=== PATIENT | female | born 1940 | race Caucasian/White ===

== ENCOUNTER 2017-04-11 15:31 | Emergency (ER) | payer MEDICARE ==
[2017-04-11 15:57] VITALS: TEMP 98.7
--- NOTE | 2017-04-11 16:59 | ED ---
General Adult HPI - General Chief complaint: Upper Respiratory Infection Stated complaint: \ Time Seen by Provider: 04/11/17 16:41 Source: patient, RN notes reviewed Mode of arrival: ambulatory Limitations: no limitations - History of Present Illness Initial comments: 76 yo female presents to the ER with cc of concern that she is being poisoned by her furnace. She states every year she turns her.she does get throat pain she says congestion she starts to get a cough and states started doctor for this. Evaluated and nothing to his ALLERGIES. He states she does not make sure there is nothing more going on. She states she just feels ill she feels like she gets mild headaches associated with this. She denies any fever or chills. Patient denies any recent fever, chills, chest pain, back pain, abdominal pain, nausea vomiting, numbness or tingling, dysuria or hematuria, constipation or diarrhea, headaches or visual changes, or any other current symptoms. - Related Data Home Medications Medication Instructions Recorded Confirmed Levothyroxine Sodium [Synthroid] 88 mcg PO DAILY 04/11/17 04/11/17 Metoprolol Succinate [Toprol XL] 25 mg PO DAILY 04/11/17 04/11/17 Multivitamins, Thera [Multivitamin 1 tab PO DAILY 04/11/17 04/11/17 (formulary)] [place]-3 Fatty Acids/Fish Oil [Fish 1,000 mg PO DAILY 04/11/17 04/11/17 Oil 1,000 mg Softgel] Vitamin E 1,000 unit PO DAILY 04/11/17 04/11/17 Allergies Allergy/AdvReac Type Severity Reaction Status Date / Time Sulfa (Sulfonamide Allergy Rash/Hives Verified 04/11/17 16:59 Antibiotics) Review of Systems ROS Statement: Those systems with pertinent positive or pertinent negative responses have been documented in the HPI. ROS Other: All systems not noted in ROS Statement are negative. Past Medical History Past Medical History: Hypertension, Thyroid Disorder History of Any Multi-Drug Resistant Organisms: None Reported Past Surgical History: Cholecystectomy, Hysterectomy Additional Past Surgical History / Comment(s): bilateral cataract Past Psychological History: Anxiety Smoking Status: Never smoker Past Alcohol Use History: None Reported Past Drug Use History: None Reported General Exam - General Exam Comments Initial Comments: General: The patient is awake and alert, in no distress, and does not appear acutely ill. Eye: Pupils are equal, round and reactive to light, extra-ocular movements are intact; there is normal conjunctiva bilaterally. No signs of icterus. Ears, nose, mouth and throat: There are moist mucous membranes and no oral lesions. Neck: The neck is supple, there is no tenderness. Cardiovascular: There is a regular rate and rhythm. No murmur, rub or gallop is appreciated. Respiratory: Lungs are clear to auscultation, respirations are non-labored, breath sounds are equal. No wheezes, stridor, rales, or rhonchi. Gastrointestinal: Soft, non-distended, non-tender abdomen without masses or organomegaly noted. There is no rebound or guarding present. No CVA tenderness. Bowel sounds are unremarkable. Back: There is no tenderness to palpation in the midline. There is no obvious deformity. No rashes noted. Musculoskeletal: Normal ROM, no tenderness, There is no pedal edema. There is no calf tenderness or swelling. Sensation intact. Pulses equal bilaterally 2+. Neurological: CN II-XII intact, There are no obvious motor or sensory deficits. Coordination appears grossly intact. Speech is normal. Skin: Skin is warm and dry and no rashes or lesions are noted. Psychiatric: Cooperative, appropriate mood & affect, normal judgment. Limitations: no limitations Course Vital Signs 04/11/17 04/11/17 15:51 17:35 Temperature 98.7 F Pulse Rate 88 Respiratory 18 20 Rate Blood Pressure 218/93 O2 Sat by Pulse 99 Oximetry Medical Decision Making - Medical Decision Making 76-year-old female presents for cough with concern of furnace issue. At this time patient's lab work is been reviewed. She has a history of leukemia which is a sling elevated white blood cell count. This time we cannot find an acute cause for her symptoms. We discussed the could be ALLERGY related to the furnace discussed could be the weather. This and we discussed continued follow- up with her doctor we discussed return parameters all questions. Patient stated she understood and she is in. All questions have been answered. She will be discharged. - Lab Data Result diagrams: 04/11/17 17:28 04/11/17 17:28 Lab Results 04/11/17 04/11/17 04/11/17 Range/Units 17:28 17:28 17:28 WBC 23.3 H (3.8-10.6) k/uL RBC 5.02 (3.80-5.40) m/uL Hgb 14.2 (11.4-16.0) gm/dL Hct 44.3 (34.0-46.0) % MCV 88.3 (80.0-100.0) fL MCH 28.3 (25.0-35.0) pg MCHC 32.0 (31.0-37.0) g/dL RDW 14.8 (11.5-15.5) % Plt Count 251 (150-450) k/uL Neutrophils % (Manual) 22 % Lymphocytes % (Manual) 78 % Other Cells % % Neutrophils # (Manual) 5.13 (1.3-7.7) k/uL Lymphocytes # (Manual) 18.17 H (1.0-4.8) k/uL Nucleated RBCs 0 (0-0) /100 WBC Manual Slide Review Performed Carbon Monoxide, Quant 1.0 (<10.0) % Sodium 142 (137-145) mmol/L Potassium 4.5 (3.5-5.1) mmol/L Chloride 104 (98-107) mmol/L Carbon Dioxide 26 (22-30) mmol/L Anion Gap 12 mmol/L BUN 18 H (7-17) mg/dL Creatinine 0.84 (0.52-1.04) mg/dL Est GFR (MDRD) Af Amer >60 (>60 ml/min/1.73 sqM) Est GFR (MDRD) Non-Af >60 (>60 ml/min/1.73 sqM) Glucose 95 (74-99) mg/dL Calcium 10.4 H (8.4-10.2) mg/dL Total Bilirubin 0.5 (0.2-1.3) mg/dL AST 27 (14-36) U/L ALT 28 (9-52) U/L Alkaline Phosphatase 76 (38-126) U/L Total Protein 7.3 (6.3-8.2) g/dL Albumin 4.6 (3.5-5.0) g/dL - Radiology Data Radiology results: report reviewed, image reviewed Disposition Clinical Impression: Upper respiratory infection Disposition: HOME SELF-CARE Condition: Stable Instructions: Upper Respiratory Infection (ED) Additional Instructions: Please use medication as discussed. Please follow up with family doctor if symptoms have not improved over the next two days. Please return to the emergency room if your symptoms increase or worsen or for any other concerns. Referrals: Trinh Burk DO [Primary Care Provider] - 1-2 days Time of Disposition: 18:14
--- NOTE | 2017-04-11 17:39 | XR ---
EXAMINATION TYPE: XR chest 2V DATE OF EXAM: 04/11/2017 COMPARISON: NONE HISTORY: Headache TECHNIQUE: Frontal and lateral views of the chest are obtained. FINDINGS: Heart and mediastinum are normal. Lungs are clear. Costophrenic angles are clear. There ar e no hilar masses. Bony thorax is intact IMPRESSION: Normal chest
[2017-04-11 17:48] LABS: ALT 28 U/L (9-52); AST 27 U/L (14-36); Albumin 4.6 g/dL (3.5-5.0); Alkaline Phosphatase 76 U/L (38-126); Anion Gap 12 mmol/L; Blood Urea Nitrogen 18 mg/dL (7-17); Calcium 10.4 mg/dL (8.4-10.2); Carbon Dioxide 26 mmol/L (22-30); Chloride 104 mmol/L (98-107); Glucose 95 mg/dL (74-99); HCT 44.3 % (34.0-46.0); HGB 14.2 gm/dL (11.4-16.0); MCH 28.3 pg (25.0-35.0); MCV 88.3 fL (80.0-100.0); Mean Platelet Volume 7.9; Platelet Count 251 k/uL (150-450); Potassium 4.5 mmol/L (3.5-5.1); RBC 5.02 m/uL (3.80-5.40); RDW 14.8 % (11.5-15.5); Sodium 142 mmol/L (137-145); Total Bilirubin 0.5 mg/dL (0.2-1.3); Total Protein 7.3 g/dL (6.3-8.2); WBC 23.3 k/uL (3.8-10.6)
[2017-04-11 18:06] LABS: Lymphocytes # (M) 18.17 k/uL (1.0-4.8); Neutrophils # (M) 5.13 k/uL (1.3-7.7); Neutrophils % (M) 22 %; Nucleated Red Blood Cells 0 /100 WBC (0-0); Total Cells Counted 100
[2017-04-11 19:12] VITALS: BP 208/87; PULSE 74; RESP 16
== END 2017-04-11 19:12 | disposition home or self-care (01) ==
LOC: EC 15:31
DX: J06.9 Acute upper respiratory infection, unspecified (principal); I10 Essential (primary) hypertension; E07.9 Disorder of thyroid, unspecified; Z88.2 Allergy status to sulfonamides; Z79.899 Other long term (current) drug therapy
CPT/HCPCS: 36415; 71046; 80053; 82375; 85025; 99283

== ENCOUNTER 2022-12-03 09:12 | Emergency (ER) | payer MEDICARE ==
[2022-12-03 09:40] VITALS: RESP 18
[2022-12-03 10:11] LABS: ALT 19 U/L (4-34); AST 31 U/L (14-36); African American GFR (CKD) 74 (>60 ml/min/1.73 sqM); Albumin 4.3 g/dL (3.5-5.0); Alkaline Phosphatase 55 U/L (38-126); Anion Gap 12 mmol/L; Blood Urea Nitrogen 12 mg/dL (7-17); Calcium 8.9 mg/dL (8.4-10.2); Carbon Dioxide 21 mmol/L (22-30); Chloride 105 mmol/L (98-107); Glucose 130 mg/dL (74-99); Non-African American GFR(CKD) 64 (>60 ml/min/1.73 sqM); Potassium 4.4 mmol/L (3.5-5.1); Sodium 138 mmol/L (137-145); Total Bilirubin 0.5 mg/dL (0.2-1.3); Total Protein 6.6 g/dL (6.3-8.2)
[2022-12-03 10:19] LABS: Anisocytosis Slight; HCT 35.5 % (34.0-46.0); HGB 11.6 gm/dL (11.4-16.0); MCH 30.1 pg (25.0-35.0); MCHC 32.6 g/dL (31.0-37.0); Mean Platelet Volume 9.7; Platelet Count 100 k/uL (150-450); RBC 3.84 m/uL (3.80-5.40); RDW 16.2 % (11.5-15.5)
[2022-12-03 10:23] LABS: WBC 140.2 k/uL (3.8-10.6)
[2022-12-03 10:24] LABS: MCV 92.4 fL (80.0-100.0)
--- NOTE | 2022-12-03 11:14 | ED ---
General Adult HPI - General Chief complaint: Recheck/Abnormal Lab/Rx Stated complaint: DOC SENT/RECHECK VIT K Time Seen by Provider: 12/03/22 10:08 Source: patient, RN notes reviewed Mode of arrival: ambulatory Limitations: no limitations - History of Present Illness Initial comments: 82-year-old female presents to the emergency department for laboratory recheck. She states she had her labs drawn on 11/27/22 and had an elevated potassium. She was told by her primary care provider to have her labs redrawn. Overall she states that she is feeling well. Past medical history includes hypertension, leukemia. He follows with Dr. Moore for her leukemia. She denies any chest pain, palpitations, nausea, vomiting, weakness. - Related Data Home Medications Medication Instructions Recorded Confirmed Levothyroxine Sodium [Synthroid] 88 mcg PO DAILY 04/11/17 04/11/17 Metoprolol Succinate [Toprol XL] 25 mg PO DAILY 04/11/17 04/11/17 Multivitamins, Thera [Multivitamin 1 tab PO DAILY 04/11/17 04/11/17 (formulary)] [place]-3 Fatty Acids/Fish Oil [Fish 1,000 mg PO DAILY 04/11/17 04/11/17 Oil 1,000 mg Softgel] Vitamin E (Dl,Tocopheryl Acet) 1,000 unit PO DAILY 04/11/17 04/11/17 [Vitamin E] Allergies Allergy/AdvReac Type Severity Reaction Status Date / Time Sulfa (Sulfonamide Allergy Rash/Hives Verified 12/03/22 09:40 Antibiotics) Review of Systems ROS Statement: Those systems with pertinent positive or pertinent negative responses have been documented in the HPI. ROS Other: All systems not noted in ROS Statement are negative. Past Medical History Past Medical History: Hypertension, Thyroid Disorder History of Any Multi-Drug Resistant Organisms: None Reported Past Surgical History: Cholecystectomy, Hysterectomy Additional Past Surgical History / Comment(s): bilateral cataract Past Psychological History: Anxiety Smoking Status: Never smoker Past Alcohol Use History: None Reported Past Drug Use History: None Reported General Exam Limitations: no limitations General appearance: alert, in no apparent distress Head exam: Present: atraumatic, normocephalic, normal inspection Eye exam: Present: normal appearance, PERRL, EOMI. Absent: scleral icterus, conjunctival injection, periorbital swelling ENT exam: Present: normal exam, mucous membranes moist Neck exam: Present: normal inspection. Absent: tenderness, meningismus, lymphadenopathy Respiratory exam: Present: normal lung sounds bilaterally. Absent: respiratory distress, wheezes, rales, rhonchi, stridor Cardiovascular Exam: Present: regular rate, normal rhythm, normal heart sounds. Absent: systolic murmur, diastolic murmur, rubs, gallop, clicks GI/Abdominal exam: Present: soft, normal bowel sounds. Absent: distended, tenderness, guarding, rebound, rigid Extremities exam: Present: normal inspection, full ROM, normal capillary refill. Absent: tenderness, pedal edema, joint swelling, calf tenderness Back exam: Present: normal inspection Neurological exam: Present: alert, oriented X3 Psychiatric exam: Present: normal affect, normal mood Skin exam: Present: warm, dry, intact, normal color. Absent: rash Course Vital Signs 12/03/22 09:37 Temperature 98 F Pulse Rate 67 Respiratory 18 Rate Blood Pressure 95/56 O2 Sat by Pulse 100 Oximetry Medical Decision Making - Medical Decision Making Was pt. sent in by a medical professional or institution ([facility] Whelan, PIPED POCKET MACHINE OPERATOR, urgent care, hospital, or senior living...) When possible be specific @ -Sent by her primary care provider Did you speak to anyone other than the patient for history (EMS, parent, family, police, friend...)? What history was obtained from this source @ -No Did you review nursing and triage notes (agree or disagree)? Why? @ -I reviewed and agree with nursing and triage notes Were old charts reviewed (outside hosp., previous admission, EMS record, old EKG, old radiological studies, urgent care reports/EKG's, senior living records)? Report findings @ -No old charts were reviewed Differential Diagnosis (chest pain, altered mental status, abdominal pain women, abdominal pain men, vaginal bleeding, weakness, fever, dyspnea, syncope, headache, dizziness, GI bleed, back pain, seizure, CVA, palpatations, mental health, musculoskeletal)? @ -not applicable EKG interpreted by me (3pts min.). @ -EKG at 0951 showed sinus rhythm, rate 61, [place] 132, QRS 96, QTQTc [id number] X-rays interpreted by me (1pt min.). @ -None done CT interpreted by me (1pt min.). @ -None done U/S interpreted by me (1pt. min.). @ -None done What testing was considered but not performed or refused? (CT, X-rays, U/S, labs)? Why? @ -None What meds were considered but not given or refused? Why? @ -None Did you discuss the management of the patient with other professionals (professionals i.e. Dr., PA, PIPED POCKET MACHINE OPERATOR, lab, RT, psych nurse, social services aide, special education assistant, teacher, cra officer, employment evaluator/case manager)? Give summary @ -No Was smoking cessation discussed for >3mins.? @ -No Was critical care preformed (if so, how long)? @ -No Were there social determinants of health that impacted care today? How? (Homelessness, low income, unemployed, alcoholism, drug addiction, transportation, low edu. Level, literacy, decrease access to med. care, [facility], rehab)? @ -No Was there de-escalation of care discussed even if they declined (Discuss DNR or withdrawal of care, Hospice)? DNR status @ -No What co-morbidities impacted this encounter? (DM, HTN, Smoking, COPD, CAD, Cancer, CVA, ARF, Chemo, Hep., AIDS, mental health diagnosis, sleep apnea, morbid obesity)? @ -None Was patient admitted / discharged? Hospital course, mention meds given and route, prescriptions, significant lab abnormalities, going to OR and other pertinent info. @ -Discharge. Patient presented emergency department for lab redraw. [place] [address] by her primary care provider and states that her potassium was elevated on that draw. Upon review of her records in our system her potassium at that time was 6.8. EKG today at 0951 showed sinus rhythm rate 61. Her labs were redrawn today and her potassium was 4.4. Patient's baseline WBC is elevated. Today WBC is 140.2. She does have a history of leukemia and follows with Dr. Moore. Discussed findings of potassium today is 4.4. Patient understanding and stable at time of discharge. Case discussed with my attending, Dr. Mayo Undiagnosed new problem with uncertain prognosis? @ -No Drug Therapy requiring intensive monitoring for toxicity (Heparin, Nitro, Insulin, Cardizem)? @ -No Were any procedures done? @ -No Diagnosis/symptom? @ -encounter for lab redraw Acute, or Chronic, or Acute on Chronic? @ -acute Uncomplicated (without systemic symptoms) or Complicated (systemic symptoms)? @ -uncomplicated Side effects of treatment? @ -No Exacerbation, Progression, or Severe Exacerbation? @ -No Poses a threat to life or bodily function? How? (Chest pain, [place], NH, pneumonia, PE, COPD, DKA, ARF, appy, cholecystitis, CVA, Diverticulitis, Homicidal, Suicidal, threat to staff... and all critical care pts) @ -No - Lab Data Result diagrams: 12/03/22 09:46 12/03/22 09:46 Lab Results 12/03/22 12/03/22 Range/Units 09:46 09:46 WBC 140.2 H* (3.8-10.6) k/uL RBC 3.84 (3.80-5.40) m/uL Hgb 11.6 (11.4-16.0) gm/dL Hct 35.5 (34.0-46.0) % MCV 92.4 D (80.0-100.0) fL MCH 30.1 (25.0-35.0) pg MCHC 32.6 (31.0-37.0) g/dL RDW 16.2 H (11.5-15.5) % Plt Count 100 L (150-450) k/uL MPV 9.7 Anisocytosis Slight Sodium 138 (137-145) mmol/L Potassium 4.4 (3.5-5.1) mmol/L Chloride 105 (98-107) mmol/L Carbon Dioxide 21 L (22-30) mmol/L Anion Gap 12 mmol/L BUN 12 (7-17) mg/dL Creatinine 0.86 (0.52-1.04) mg/dL Est GFR (CKD-EPI)AfAm 74 (>60 ml/min/1.73 sqM) Est GFR (CKD-EPI)NonAf 64 (>60 ml/min/1.73 sqM) Glucose 130 H (74-99) mg/dL Calcium 8.9 (8.4-10.2) mg/dL Total Bilirubin 0.5 (0.2-1.3) mg/dL AST 31 (14-36) U/L ALT 19 (4-34) U/L Alkaline Phosphatase 55 (38-126) U/L Total Protein 6.6 (6.3-8.2) g/dL Albumin 4.3 (3.5-5.0) g/dL Disposition Clinical Impression: Encounter for laboratory test Disposition: HOME SELF-CARE Condition: Stable Additional Instructions: Follow up with your primary care provider and oncologist. Return to the emergency department for new or worsening symptoms. Is patient prescribed a controlled substance at d/c from ED?: No Referrals: Trinh Burk DO [Primary Care Provider] - 1-2 days Time of Disposition: 11:14
[2022-12-03 12:30] VITALS: BP 128/64; PULSE 72; TEMP 98.1
[2022-12-03 13:49] LABS: Lymphocytes # (M) 130.39 k/uL (1.0-4.8); Monocytes # (M) 7.01 k/uL (0-1.0); Neutrophils # (M) 4.21 k/uL (1.3-7.7); Neutrophils % (M) 3 %; Nucleated Red Blood Cells 0 /100 WBC (0-0); Total Cells Counted 200
== END 2022-12-03 12:30 | disposition home or self-care (01) ==
LOC: EC 09:12
DX: Z01.89 Encounter for other specified special examinations (principal); I10 Essential (primary) hypertension; E07.9 Disorder of thyroid, unspecified; Z79.890 Hormone replacement therapy; Z79.899 Other long term (current) drug therapy; Z88.2 Allergy status to sulfonamides
CPT/HCPCS: 36415; 80053; 85025; 93005; 99283

== ENCOUNTER → 2023-01-10 | Outpatient (CLI) | payer MEDICARE ==
--- NOTE | 2023-01-11 11:05 | CA ---
Transthoracic Echo Report Name: Brenda Kendall Age: 82 Gender: F : 1940 Exam Date: 01/10/2023 17:40 Exam Location: [facility] Ht (in): 63 Wt (lb): 133 Ordering Physician: Trinh Burk DO Attending/Referring Phys: Clam Treader Ada Reinoso RDCS Procedure CPT: Indications: I47.1 Supraventricular tachycardia Cardiac Hx: Technical Quality: Fair Contrast 1: Total Dose (mL): Contrast 2: Total Dose (mL): MEASUREMENTS (Male / Female) Normal Values 2D ECHO LV Diastolic Diameter PLAX 3.7 cm 4.2 - 5.9 / 3.9 - 5.3 cm LV Systolic Diameter PLAX 2.3 cm IVS Diastolic Thickness 1.0 cm 0.6 - 1.0 / 0.6 - 0.9 cm LVPW Diastolic Thickness 1.1 cm 0.6 - 1.0 / 0.6 - 0.9 cm LV Relative Wall Thickness 0.6 RV Internal Dim ED PLAX 2.9 cm LA Systolic Diameter LX 3.0 cm 3.0 - 4.0 / 2.7 - 3.8 cm LV Diastolic Volume MOD 4C 55.6 cm??? LV Systolic Volume MOD 4C 18.8 cm??? LV Ejection Fraction MOD 4C 66.2 % LV Cardiac Index MOD 4C 1344.0 cm???/min???m??? LV Diastolic Length 4C 7.9 cm LV Systolic Length 4C 6.4 cm LV Diastolic Volume MOD 2C 43.9 cm??? LV Systolic Volume MOD 2C 19.5 cm??? LV Ejection Fraction MOD 2C 55.7 % LV Cardiac Index MOD 2C 891.6 cm???/min???m??? LV Diastolic Length 2C 6.0 cm LV Systolic Length 2C 5.5 cm M-MODE Aortic Root Diameter MM 3.3 cm MV E Point Septal Separation 0.1 cm AV Cusp Separation MM 2.1 cm DOPPLER AV Peak Velocity 142.2 cm/s AV Peak Gradient 8.1 mmHg MV Area PHT 1.7 cm??? Mitral E Point Velocity 60.5 cm/s Mitral A Point Velocity 89.6 cm/s Mitral E to A Ratio 0.7 MV Deceleration Time 459.1 ms MV E' Velocity 13.8 cm/s Mitral E to MV E' Ratio 4.4 TR Peak Velocity 242.3 cm/s TR Peak Gradient 23.5 mmHg Right Ventricular Systolic Press 28.5 mmHg FINDINGS Left Ventricle Left ventricular ejection fraction is estimated at 55-60 %. Left ventricular cavity size normal. Mildly increased septal wall thickness. Mildly increased posterior wall thickness. Right Ventricle Normal right ventricular size. Right ventricular systolic pressure within normal limits. Right Atrium Normal right atrial size. Left Atrium Normal left atrial size. Mitral Valve Structurally normal mitral valve. No mitral stenosis, regurgitation or prolapse. Aortic Valve Trileaflet aortic valve. No aortic valve stenosis or regurgitation. Tricuspid Valve Structurally normal tricuspid valve. Trace to mild tricuspid regurgitation. Pulmonic Valve Structurally normal pulmonic valve. Mild pulmonic regurgitation. Pericardium No pericardial effusion. Aorta Normal size aortic root and proximal ascending aorta. CONCLUSIONS Technically difficult study for interpretation Normal LV systolic function Previewed by: Dr. William Ren MD (Electronically Signed) Final Date: 11 January 2023 11:04
== END | disposition home or self-care (01) ==
LOC: RADECHMAIN 17:37
PROVIDERS: ATTEND Family Medicine
DX: I47.10 Supraventricular tachycardia, unspecified (principal)
CPT/HCPCS: 93306

== ENCOUNTER → 2023-05-28 | Outpatient (CLI) | payer MEDICARE ==
[2023-05-28 17:18] LABS: Basophils # (M) 0 X 10*3/uL (0.00-0.10); Eosinophils # (M) 2.08 X 10*3/uL (0.04-0.35); HCT 36.4 % (37.2-46.3); HGB 11.1 g/dL (12.0-15.0); Immature Platelet Fraction 9.4 % (1.1-6.1); Lymphocytes # (M) 199.62 X 10*3/uL (0.90-5.00); MCH 29.8 pg (27.0-32.0); MCHC 30.5 g/dL (32.0-37.0); MCV 97.8 FL (80.0-97.0); Mean Platelet Volume 12.4 FL (9.5-12.2); Monocytes # (M) 0 X 10*3/uL (0.20-1.00); NRBC Per 100 WBC 0 X 10*3/uL (0.00-0.01); Neutrophils % (M) 3 %; Platelet Count 69 X 10*3/uL (140-440); RBC 3.72 X 10*6/uL (4.10-5.20); RBC Morphology Normal (Normal); RDW 16.7 % (11.5-14.5); WBC 207.94 X 10*3/uL (4.50-10.00)
== END | disposition home or self-care (01) ==
LOC: LABWHC1 11:22
PROVIDERS: ATTEND Internal Medicine Hematology & Oncology
DX: C91.10 Chronic lymphocytic leukemia of B-cell type not having achieved remission (principal); D69.59 Other secondary thrombocytopenia; E78.5 Hyperlipidemia, unspecified; M10.9 Gout, unspecified
CPT/HCPCS: 36415; 85025